=== PATIENT | female | born 1940 | race Caucasian/White ===

== ENCOUNTER → 2021-09-05 | Outpatient (CLI) | payer MEDICARE ==
--- NOTE | 2021-09-05 16:54 | RAD ---
XR LT WRIST 3VIEWS History: Reason: PAIN, FRACTURE, FALL 6 WEEKS AGO / Spl. Instructions: / History: Technique: 3 views left wrist Comparison: July 24, 2021 Findings: Right distal radial fracture with mild displacement, unchanged alignment. There is slight interval he aling with increased sclerosis and bony bridging. The fracture lines are still evident. Unchanged uln ar styloid fracture. Mild first carpometacarpal DJD. Impression: 1. Left distal radius displaced fracture with slight interval healing. 2. Unchanged ulnar styloid fracture. Electronically signed by: Roland Pierre DO (09/05/2021 4:52 PM) [id number]
== END ==
LOC: RAD 14:45
PROVIDERS: ATTEND Physician Assistant
DX: S52.502D Unspecified fracture of the lower end of left radius, subsequent encounter for closed fracture with routine healing (principal); S52.612D Displaced fracture of left ulna styloid process, subsequent encounter for closed fracture with routine healing; M19.032 Primary osteoarthritis, left wrist; W19.XXXD Unspecified fall, subsequent encounter
CPT/HCPCS: 73110